=== PATIENT | male | born 1985 | race Two or more races ===

== ENCOUNTER 2019-09-29 22:11 | Emergency (ER) | payer MEDICAID ==
[~2019-09-29] VITALS: Ht 170.2 cm; Wt 54.4 kg
[2019-09-29 22:27] VITALS: BP 136/97
[2019-09-29] MEDS: IPRATROPIUM NEB FS 0.5 MG/2.5 ML AMPUL.NEB NEB ONE (22:42)
[2019-09-29] MEDS: ALBUTEROL FS 2.5 MG/3 ML VIAL.NEB NEB ONE (22:42)
[2019-09-29] MEDS ORDERED: ALBUTEROL FS 2.5 MG/3 ML VIAL.NEB ONE (22:46)
[2019-09-29] MEDS ORDERED: IPRATROPIUM NEB FS 0.5 MG/2.5 ML AMPUL.NEB ONE (22:46)
== END 2019-09-30 00:20 | disposition home or self-care (01) ==
LOC: ER 22:18
DX: J45.909 Unspecified asthma, uncomplicated (principal); Z88.0 Allergy status to penicillin
CPT/HCPCS: 71045-TC

== ENCOUNTER 2020-02-29 12:30 | Emergency (ER) | payer MEDICAID ==
[~2020-02-29] VITALS: Ht 167.6 cm; Wt 56.2 kg
[2020-02-29 12:48] VITALS: BP 124/65
== END 2020-02-29 13:01 | disposition home or self-care (01) ==
LOC: ER 12:36
DX: J45.909 Unspecified asthma, uncomplicated (principal); Z88.0 Allergy status to penicillin

== ENCOUNTER 2020-05-06 14:56 | Emergency (ER) | payer MEDICAID ==
[~2020-05-06] VITALS: Ht 170.2 cm; Wt 54.4 kg
--- NOTE | 2020-05-06 15:30 | NUR ---
PT C/O DIARRHEA X 3 DAYS. PT STABLE, DENIES CP, SOB, DIZZINESS, N/V, WEAKNESS AT THIS TIME. PT SEEN & EVAL'D BY DR. HWANG. WILL CONT TO MONITOR.
[2020-05-06 15:54] LABS: BASOPHILS % (AUTO) 0.5 % (0.0-2.0); EOSINOPHILS % (AUTO) 1.5 % (0.0-6.0); HEMATOCRIT 45 % (39-51); HEMOGLOBIN 15.2 g/dL (13.5-17.5); LYMPHOCYTES # (AUTO) 2.2 /CMM (0.8-4.8); LYMPHOCYTES % (AUTO) 40.3 % (20.0-44.0); MEAN CORPUSCULAR HGB CONC 34 g/dl (31.0-36.0); MEAN CORPUSCULAR VOLUME 88 fL (80-96); MONOCYTES # (AUTO) 0.5 /CMM (0.1-1.30); MONOCYTES % (AUTO) 8.3 % (2.0-12.0); NEUTROPHILS # (AUTO) 2.7 /CMM (1.8-8.9); NEUTROPHILS % (AUTO) 49.4 % (43.0-81.0); PLATELET COUNT (AUTO) 127 /CMM (150-450); RED BLOOD CELL COUNT(AUTO) 5.13 MIL/uL (4.5-6.0); WHITE BLOOD COUNT (AUTO) 5.4 K/uL (4.3-11.0)
[2020-05-06 16:13] LABS: ALBUMIN 3.9 g/dL (3.4-5.0); BILIRUBIN,DIRECT 0.2 mg/dL (0.0-0.2); BILIRUBIN,TOTAL 0.9 mg/dL (0.2-1.0); CALCIUM, SERUM 8.8 mg/dL (8.5-10.1); POTASSIUM 3.9 mmol/L (3.5-5.1); TOTAL PROTEIN, SERUM 6.8 g/dL (6.4-8.2)
--- NOTE | 2020-05-06 16:34 | NUR ---
Patient discharged to home in stable condition. Written and verbal after care instructions given. Patient verbalizes understanding of instruction.
[2020-05-06 16:35] VITALS: BP 132/74
== END 2020-05-06 16:35 | disposition home or self-care (01) ==
LOC: ER 14:59
DX: R19.7 Diarrhea, unspecified (principal); J45.909 Unspecified asthma, uncomplicated; Z88.0 Allergy status to penicillin; Z60.2 Problems related to living alone
CPT/HCPCS: 36415; 80048-TC; 80076-TC; 83690-TC; 85025-TC

== ENCOUNTER 2020-08-26 15:10 | Emergency (ER) | payer MEDICAID ==
[~2020-08-26] VITALS: Ht 167.6 cm; Wt 63.5 kg
[2020-08-26 15:15] VITALS: BP 119/70
--- NOTE | 2020-08-26 15:35 | NUR ---
Patient given written and verbal discharge instructions. Patient verbalizes understanding of instructions. Patient is ambulatory with steady gait. Refuses offer of halfway placement. Patient given list of available shelters in surrounding area.
== END 2020-08-26 15:37 | disposition home or self-care (01) ==
LOC: ER 15:14
DX: J45.909 Unspecified asthma, uncomplicated (principal); Z76.0 Encounter for issue of repeat prescription; Z88.0 Allergy status to penicillin; Z60.2 Problems related to living alone

== ENCOUNTER 2020-09-04 22:04 | Emergency (ER) | payer MEDICAID ==
[~2020-09-04] VITALS: Ht 167.6 cm; Wt 59.0 kg
[2020-09-04 22:23] VITALS: BP 131/89
--- NOTE | 2020-09-04 22:23 | NUR ---
BIBSELF C/O RECTAL PAIN X2 DAYS, TO ER BED 7, HOOKED BP CUFF AND POX, CHANGED TO HOSP GOWN, WARM BLANKET PROVIDED, PATIENT AAO x 4, BREATHING EVEN AND UNLABORED. AWAITING MD LARES.
== END 2020-09-04 23:15 | disposition home or self-care (01) ==
LOC: ER 22:07
DX: K64.4 Residual hemorrhoidal skin tags (principal); J45.909 Unspecified asthma, uncomplicated; Z88.0 Allergy status to penicillin; Z60.2 Problems related to living alone

== ENCOUNTER 2020-11-05 18:15 | Emergency (ER) | payer MEDICAID ==
[~2020-11-05] VITALS: Ht 170.2 cm; Wt 56.7 kg
[2020-11-05 18:38] VITALS: BP 127/83
== END 2020-11-05 19:29 | disposition home or self-care (01) ==
LOC: ER 18:16
DX: Z00.00 Encounter for general adult medical examination without abnormal findings (principal); J45.909 Unspecified asthma, uncomplicated; Z88.0 Allergy status to penicillin; Z60.2 Problems related to living alone

== ENCOUNTER 2021-03-13 13:57 | Emergency (ER) | payer MEDICAID ==
[~2021-03-13] VITALS: Ht 170.2 cm; Wt 54.4 kg
--- NOTE | 2021-03-13 14:06 | NUR ---
CALLED TO TRIAGE NO ANSWER.
--- NOTE | 2021-03-13 14:12 | NUR ---
CALLED TO TRIAGE NO ANSWER.
[2021-03-13 14:23] VITALS: BP 121/89
[2021-03-13] MEDS ORDERED: ALBU8.5H8 INH (14:31)
--- NOTE | 2021-03-13 14:37 | NUR ---
Patient given written and verbal discharge instructions. Patient verbalizes understanding of instructions. Patient is ambulatory with steady gait. Refuses offer of snf placement. Patient given list of available shelters in surrounding area.
== END 2021-03-13 14:38 | disposition home or self-care (01) ==
LOC: ER 14:05
DX: J45.909 Unspecified asthma, uncomplicated (principal); Z76.0 Encounter for issue of repeat prescription; Z88.0 Allergy status to penicillin; Z60.2 Problems related to living alone; Z79.899 Other long term (current) drug therapy